=== PATIENT | female | born 1970 | race Caucasian/White ===

== ENCOUNTER → 2016-06-26 | Outpatient (REF) | payer OTHER | LOC: M SFHCCAPE 11:37 | PROVIDERS: ATTEND Physician Assistant | DX: D50.9 Iron deficiency anemia, unspecified (principal) ==

== ENCOUNTER → 2016-07-03 | Outpatient (REF) | payer OTHER ==
[2016-07-03 16:49] LABS: BASO # 0.1 K/mm3 (0.0-0.2); EOS # 0.1 K/mm3 (0.0-0.50); EOS % 1.1 % (0.0-3.0); LARGE UNSTAINED CELL # 0.2 K/mm3 (0.0-0.4); LARGE UNSTAINED CELL % 3.4 % (0.0-4.0); LYMPH # 1.9 K/mm3 (1.5-4.5); LYMPH % 23.7 % (24.0-44.0); MEAN CORPUSCULAR HEMOGLOBIN 22.8 pg (27.0-33.0); MEAN CORPUSCULAR HGB CONC 31.2 g/dl (32.0-36.5); MEAN CORPUSCULAR VOLUME 72.9 fl (80.0-96.0); MONO # 0.6 K/mm3 (0.0-0.8); MONO % 7.8 % (0.0-5.0); NEUTROPHILS # 4.5 K/mm3 (1.8-7.7); PLATELET COUNT, AUTOMATED 375 k/mm3 (150-450); RED CELL DISTRIBUTION WIDTH 22.1 % (11.5-14.5); WHITE BLOOD COUNT 7.2 K/mm3 (4.0-10.0)
[2016-07-03 16:52] LABS: ADD MORPHOLOGY? YES
[2016-07-03 17:09] LABS: ALBUMIN 3.6 GM/DL (3.2-5.2); ALBUMIN/GLOBULIN RATIO 0.88 (1.00-1.93); ALKALINE PHOSPHATASE 100 U/L (45-117); ALT/SGPT 33 U/L (12-78); ANION GAP 11 MEQ/L (8-16); AST/SGOT 56 U/L (15-37); BILIRUBIN,TOTAL 0.5 MG/DL (0.2-1.0); BLOOD UREA NITROGEN 12 MG/DL (7-18); CALCIUM LEVEL 8.9 MG/DL (8.5-10.1); CARBON DIOXIDE LEVEL 27 MEQ/L (21-32); CHLORIDE LEVEL 102 MEQ/L (98-107); CREATININE FOR GFR 0.73 MG/DL (0.55-1.02); FERRITIN 24 NG/ML (8-252); GLOMERULAR FILTRATION RATE > 60.0 (>58); GLUCOSE, FASTING 86 MG/DL (70-105); PERCENT SATURATION 27.3 % (13.2-37.4); POTASSIUM SERUM 3.2 MEQ/L (3.5-5.1); SODIUM LEVEL 140 MEQ/L (136-145); TOTAL IRON BINDING CAPACITY 403 UG/DL (250-450); TOTAL PROTEIN 7.7 GM/DL (6.4-8.2)
[2016-07-03 21:36] LABS: ANISOCYTOSIS 2+; HYPOCHROMASIA 2+; MICROCYTOSIS 2+
== END ==
LOC: M SFHCCAPE 10:46 → M SFHCCLAY 10:50
PROVIDERS: ATTEND Physician Assistant
DX: N92.1 Excessive and frequent menstruation with irregular cycle (principal); D50.9 Iron deficiency anemia, unspecified

== ENCOUNTER → 2016-07-14 | Outpatient (REF) | payer OTHER ==
[2016-07-14 17:26] LABS: ALBUMIN 3.4 GM/DL (3.2-5.2); ALBUMIN/GLOBULIN RATIO 0.81 (1.00-1.93); ALKALINE PHOSPHATASE 86 U/L (45-117); ALT/SGPT 51 U/L (12-78); ANION GAP 10 MEQ/L (8-16); AST/SGOT 37 U/L (15-37); BILIRUBIN,TOTAL 0.4 MG/DL (0.2-1.0); BLOOD UREA NITROGEN 12 MG/DL (7-18); CALCIUM LEVEL 8.9 MG/DL (8.5-10.1); CARBON DIOXIDE LEVEL 26 MEQ/L (21-32); CHLORIDE LEVEL 102 MEQ/L (98-107); CREATININE FOR GFR 0.71 MG/DL (0.55-1.02); GLOMERULAR FILTRATION RATE > 60.0 (>58); GLUCOSE, FASTING 98 MG/DL (70-105); POTASSIUM SERUM 3.2 MEQ/L (3.5-5.1); SODIUM LEVEL 138 MEQ/L (136-145); TOTAL PROTEIN 7.6 GM/DL (6.4-8.2)
[2016-07-14 18:37] LABS: MEAN CORPUSCULAR HGB CONC 30.2 g/dl (32.0-36.5); MEAN CORPUSCULAR VOLUME 76.1 fl (80.0-96.0); PLATELET COUNT, AUTOMATED 382 k/mm3 (150-450); RED CELL DISTRIBUTION WIDTH 21.2 % (11.5-14.5); WHITE BLOOD COUNT 7.5 K/mm3 (4.0-10.0)
[2016-07-14 21:10] LABS: EOSINOPHILS 5 % (0-5)
[2016-07-14 21:14] LABS: ANISOCYTOSIS 3+; MICROCYTOSIS 1+
[2016-07-14 21:15] LABS: GIANT PLATELETS 1+; HYPOCHROMASIA 1+; TOXIC VACUOLATION 1+
== END ==
LOC: M LAB REF 16:41
PROVIDERS: ATTEND Physician Assistant
DX: E87.6 Hypokalemia (principal)

== ENCOUNTER → 2016-08-15 | Outpatient (REF) | payer OTHER ==
[~2016-08-15] MED LIST: COLA100C PO; CYCL1TAB PO; FERR325T PO; FLUO20CA8 PO; HYDR25TAB PO; IRON65TA PO; K-TA1TAB PO; LEVO88TA3 PO; LOSA25TA8 PO; NECO1TAB9 PO; OMEP40CA2 PO; ONDA1TAB16 PO; SUCR1SUS PO; VITA-130 PO; VITA50003 PO; VITMTA PO
[2016-08-15 17:55] LABS: MEAN CORPUSCULAR HEMOGLOBIN 25.4 pg (27.0-33.0); MEAN CORPUSCULAR HGB CONC 31.9 g/dl (32.0-36.5); MEAN CORPUSCULAR VOLUME 79.7 fl (80.0-96.0); PLATELET COUNT, AUTOMATED 446 k/mm3 (150-450); RED CELL DISTRIBUTION WIDTH 22.5 % (11.5-14.5); WHITE BLOOD COUNT 16.5 K/mm3 (4.0-10.0)
[2016-08-15 18:17] LABS: ALBUMIN 3.5 GM/DL (3.2-5.2); ALBUMIN/GLOBULIN RATIO 0.78 (1.00-1.93); ALKALINE PHOSPHATASE 82 U/L (45-117); ALT/SGPT 17 U/L (12-78); ANION GAP 11 MEQ/L (8-16); AST/SGOT 11 U/L (15-37); BILIRUBIN,TOTAL 0.4 MG/DL (0.2-1.0); BLOOD UREA NITROGEN 15 MG/DL (7-18); CALCIUM LEVEL 9.5 MG/DL (8.5-10.1); CARBON DIOXIDE LEVEL 23 MEQ/L (21-32); CHLORIDE LEVEL 104 MEQ/L (98-107); CREATININE FOR GFR 0.77 MG/DL (0.55-1.02); FERRITIN 5 NG/ML (8-252); GLOMERULAR FILTRATION RATE > 60.0 (>58); GLUCOSE, FASTING 125 MG/DL (70-105); PERCENT SATURATION 22.3 % (13.2-37.4); POTASSIUM SERUM 3.5 MEQ/L (3.5-5.1); SODIUM LEVEL 138 MEQ/L (136-145); TOTAL IRON BINDING CAPACITY 520 UG/DL (250-450)
[2016-08-15 19:35] LABS: FOLATE 9.5 NG/ML (>5.4)
[2016-08-15 20:11] LABS: MICROCYTOSIS 2+
[2016-08-15 20:12] LABS: ANISOCYTOSIS 3+; TOXIC VACUOLATION 1+
== END ==
LOC: M SFHCCLAY 09:30
PROVIDERS: ATTEND Family Medicine
DX: D50.9 Iron deficiency anemia, unspecified (principal); I10 Essential (primary) hypertension

== ENCOUNTER 2016-08-17 14:52 | Inpatient (IN) | payer OTHER ==
[~2016-08-17] VITALS: Ht 154.9 cm; Wt 77.1 kg
[2016-08-17] MEDS ORDERED: NECO1TAB9 PO (16:22)
[2016-08-17] MEDS ORDERED: IRON65TA PO (16:22)
[2016-08-17] MEDS ORDERED: FLUO20CA8 PO (16:22)
[2016-08-17] MEDS ORDERED: OMEP40CA2 PO (16:22)
[2016-08-17] MEDS ORDERED: HYDR25TAB PO (16:22)
[2016-08-17] MEDS ORDERED: LEVO88TA3 PO (16:22)
[2016-08-17] MEDS ORDERED: LOSA25TA8 PO (16:22)
[2016-08-17] MEDS ORDERED: COLA100C PO (16:22)
[2016-08-17] MEDS ORDERED: VITA50003 PO (16:22)
[2016-08-17] MEDS ORDERED: NS 1,000 ML IV ONE (17:15)
[2016-08-17 18:12] LABS: CONTROL LINE HCG INT CTR LINE PRESENT
[2016-08-17 18:22] LABS: ALBUMIN 3.1 GM/DL (3.2-5.2); ALBUMIN/GLOBULIN RATIO 0.66 (1.00-1.93); ALKALINE PHOSPHATASE 75 U/L (45-117); ALT/SGPT 28 U/L (12-78); AST/SGOT 24 U/L (15-37); BILIRUBIN,DIRECT < 0.1 MG/DL (0.0-0.2); BLOOD UREA NITROGEN 8 MG/DL (7-18); CALCIUM LEVEL 8.4 MG/DL (8.5-10.1); CARBON DIOXIDE LEVEL 23 MEQ/L (21-32); CHLORIDE LEVEL 104 MEQ/L (98-107); GLUCOSE, FASTING 75 MG/DL (70-105); POTASSIUM SERUM 2.5 MEQ/L (3.5-5.1); THYROXINE (T4) 20.6 UG/DL (4.5-12.0); TOTAL PROTEIN 7.8 GM/DL (6.4-8.2)
[2016-08-17 18:32] LABS: BASO % 0.6 % (0.0-1.0); EOS % 0.7 % (0.0-3.0); LARGE UNSTAINED CELL # 0.3 K/mm3 (0.0-0.4); LARGE UNSTAINED CELL % 4.2 % (0.0-4.0); LYMPH # 1.6 K/mm3 (1.5-4.5); LYMPH % 24.8 % (24.0-44.0); MEAN CORPUSCULAR HGB CONC 32.6 g/dl (32.0-36.5); MEAN CORPUSCULAR VOLUME 76.7 fl (80.0-96.0); MONO # 0.6 K/mm3 (0.0-0.8); MONO % 9.7 % (0.0-5.0); NEUTROPHILS # 3.9 K/mm3 (1.8-7.7); PLATELET COUNT, AUTOMATED 412 k/mm3 (150-450); RED CELL DISTRIBUTION WIDTH 21.5 % (11.5-14.5); WHITE BLOOD COUNT 6.6 K/mm3 (4.0-10.0)
[2016-08-17 18:35] LABS: BILIRUBIN,TOTAL 0.4 MG/DL (0.2-1.0); CREATININE FOR GFR 0.66 MG/DL (0.55-1.02); GLOMERULAR FILTRATION RATE > 60.0 (>58)
[2016-08-17 18:42] LABS: ANION GAP 13 MEQ/L (8-16); SODIUM LEVEL 140 MEQ/L (136-145)
[2016-08-17] MEDS ORDERED: POTASSIUM CHLORIDE 10 MEQ SR TABLET PO ONE ×2 (19:00→20:30)
[2016-08-17] MEDS ORDERED: KCL 10MEQ IN 100ML SWI (KRUN) 10 MEQ in APPROPRIATE DILUENT 1 EA IV ONE ×4 (19:15→20:30)
[2016-08-17] MEDS ORDERED: POTASSIUM CHLORIDE INJ 10 MEQ in D5W/0.2% SODIUM CHLORIDE 1,000 ML IV SCH (19:15)
[2016-08-17] MEDS ORDERED: ISOVUE-370 76% 100ML VIAL (Q9967) As Ordered ONE (19:17)
--- NOTE | 2016-08-17 19:20 | REPUSA ---
CLINICAL HISTORY: Dizziness. TECHNIQUE: Multiple axial CT images were obtained through brain without IV contrast material. COMMENTS: The study shows normal configuration of sella turcica. There are no intra or extra-axial collections. There is no mass effect or midline shift. There is no evidence of hematoma formation. No hydrocephalus is present. The ventricles are symmetrical. No abnormal calcifications are present. No significant focal abnormalities are seen either in the posterior fossa or supratentorial compartme nt. IMPRESSION: No acute intracranial pathology. Thank you for your kind referral of this patient.
--- NOTE | 2016-08-17 19:38 | REP ---
AP PORTABLE CHEST: 08/17/2016. Comparison: 01/14/2010. Clinical history: Dyspnea, cough. Findings: The lungs are well inflated. CP angles are sharply defined. There is no effusion, infiltrate, atelectasis or mass. The heart, mediastinal and hilar contours, aorta and airway were intact. Bones without acute finding. Impression:1. No acute cardiopulmonary disease. Signed by Chris Valencia MD 08/17/2016 07:54 P
--- NOTE | 2016-08-17 20:50 | REPUSA ---
History: shortness of breath Comparison: No prior CTA of the chest available Technique: A CT-pulmonary angiogram was performed. A dose of intravenous contrast was administered. A xial images were displayed, as were sagittal and coronal reconstructions. A 3-D model was also render ed. Exam DLP: Findings: No CT evidence of pulmonary embolism is identified. There is no evidence of thoracic aortic aneurysm or dissection. No air space consolidation is identified in the lungs. There is no evidence of pulmonary edema. No pa thologically enlarged hilar or mediastinal lymph nodes are identified. No significant pleural or genesis cardial fluid collection is seen. There is no evidence of pneumothorax. Large hiatal hernia is noted. The included portion of the upper abdomen does not show significant abnormality. Impression: No evidence of pulmonary embolism is identified. Large hiatal hernia.
[2016-08-17 20:52] LABS: MAGNESIUM LEVEL 1.8 MG/DL (1.8-2.4)
--- NOTE | 2016-08-17 21:10 | REPUSA ---
CLINICAL HISTORY: Shortness of breath. TECHNIQUE: Multiple axial CT images were obtained through the abdomen and pelvis after administratio n of intravenous contrast material. Oral contrast material was not administered. COMMENTS: There are several small hepatic cysts noted measuring up to 10 mm. There is no intra or extrahepatic biliary ductal dilatation. The spleen is normal. Status post cholecystectomy. The pancreas is of normal contour and attenuation characteristics. There is no evidence of adrenal mass. Both kidneys demonstrate prompt and equal nephrograms. The kidneys are normal in size, shape and con figuration. There is no evidence of renal or ureteral mass. No renal or ureteral calculi are identi fied. There is no hydroureter or hydronephrosis. No evidence for appendicitis. There are fluid filled thick wall loops of small bowel noted compatibl e with panenteritis. Infectious and inflammatory etiology is considered. No evidence for small or l arge bowel obstruction. There is no evidence of abdominal ascites or lymphadenopathy. Scattered sig moid diverticula seen. No evidence of diverticulitis. Uterus is somewhat bulky and enlarged. Ovaries are grossly unremarkable. There are surgical clips n oted in the left adnexa. There is no evidence of intrinsic or extrinsic bladder mass. There is no pelvic ascites or lymphaden opathy. Images of the lung bases show no evidence of pleural or parenchymal mass. There are no pleural effus ions. The bony structures are free of lytic or blastic lesions. Large hiatal hernia is seen. Small fat containing umbilical hernia is seen. IMPRESSION: 1. There are several small hepatic cysts noted measuring up to 10 mm. 2. There are fluid filled thick wall loops of small bowel noted compatible with panenteritis. 3. Uterus is somewhat bulky and enlarged. 4. Large hiatal hernia is seen. 5. Small fat containing umbilical hernia is seen. Thank you for your kind referral of this patient. We appreciate the opportunity to participate in thi s patient's care.
[2016-08-17] MEDS ORDERED: FERR325T PO (22:53)
[2016-08-17] MEDS ORDERED: CYCL1TAB PO (22:56)
[2016-08-17] MEDS ORDERED: ONDA1TAB16 PO (22:56)
[2016-08-17] MEDS ORDERED: VITA-130 PO (22:56)
[2016-08-17] MEDS ORDERED: VITMTA PO (22:56)
[2016-08-17] MEDS ORDERED: ONDANSETRON 4 MG TAB (S0181) PO PRN (23:45)
[2016-08-17] MEDS ORDERED: ONDANSETRON 4MG/2ML VIAL (J2405) IV PRN (23:45)
[2016-08-17] MEDS ORDERED: PERCOCET 5MG/325MG TAB PO PRN (23:45)
[2016-08-17] MEDS ORDERED: ACETAMINOPHEN TAB 650MG DOSE (2X325MG) PO PRN (23:45)
[2016-08-18] VITALS (7 sets, daily range): BP systolic 112–139; BP diastolic 60–78
[2016-08-18] MEDS ORDERED: GI COCKTAIL 50ML BTL(HYOSCYAMINE/MAALOX/LIDOCAINE VISCOUS)(1:3:1) PO PRN (00:45)
--- NOTE | 2016-08-18 00:59 | HPEPDOC ---
Medical History and Physical Date of Admission Aug 17, 2016 at 23:03 History and Physical HISTORY AND PHYSICAL Date of admission: 08/18/2016 PCP: Alma Mosquera 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 She states that this started in May, but has gotten much worse in the last week. She states that any activity at all makes her extremely short of breath, as does lying flat. She states that she initially thought that she was anemic again, as she has required blood transfusions in the past for her anemia from dysfunctional uterine bleeding. However, she said that her PCP told her that her hemoglobin was fine. She reports that in addition to the shortness of breath , she has had episodes where she feels like food gets stuck going down. She had one of these episodes on Sunday night, and noticed that after that, it seemed to set off a lot of diarrhea and vomiting. There is no blood in her diarrhea. She states that she has an appointment with a rate clerk next week, but she is not sure that she can make it next week. Past medical history: Hypertension, hypothyroidism, anemia secondary to dysfunctional uterine bleeding, IBS Past surgical history: BTL, cholecystectomy Family history: CHF, hypertension Social history: Patient denies tobacco or alcohol use Allergies: No known drug allergies Review of systems: General: Positive for chills. Negative for fever Eyes: Negative for vision changes and ocular discharge ENT: Negative For sore throat and nose bleed Cardiovascular: Negative for chest pain and palpitations Respiratory: Negative for cough. Positive shortness of breath. GI: Positive for nausea, vomiting, diarrhea Musculoskeletal: Positive for neck pain. Negative for back pain Skin: Negative for rash Neuro: Positive for headache, dizziness, numbness and tingling of the bilateral hands and face Psych: Negative for depression and suicidal ideation Endocrine:. Negative for Polyuria : Negative for dysuria Heme: Negative for bruising and bleeding Home meds: See below Physical exam: Vital signs: Vital Sign - Last 24 Hours 08/17/16 08/17/16 08/17/16 08/17/16 15:14 15:23 15:31 15:54 Temp 98.4 Pulse 77 Resp 24 B/P 157/70 139/65 Pulse Ox 100 O2 Delivery Room Air Room Air Room Air 08/17/16 08/17/16 08/17/16 08/17/16 16:09 16:24 16:39 16:52 Pulse 74 B/P 148/72 149/78 158/78 Pulse Ox 98 08/17/16 08/17/16 08/17/16 08/17/16 16:54 17:09 17:24 17:39 B/P 150/76 157/89 154/85 141/72 08/17/16 08/17/16 08/17/16 08/17/16 18:06 18:09 18:24 18:25 Pulse 74 B/P 122/57 143/76 145/79 Pulse Ox 99 08/17/16 08/17/16 08/17/16 08/17/16 18:39 18:42 18:54 18:55 Pulse 80 B/P 139/72 144/70 135/63 Pulse Ox 100 08/17/16 08/17/16 08/17/16 08/17/16 19:09 19:25 19:26 19:30 Pulse 80 84 B/P 149/66 128/61 Pulse Ox 100 100 08/17/16 08/17/16 08/17/16 08/17/16 19:39 19:54 20:00 20:09 Pulse 82 B/P 124/70 140/73 140/65 Pulse Ox 100 08/17/16 08/17/16 08/17/16 08/17/16 20:24 20:30 20:43 20:54 Pulse 80 B/P 127/67 155/69 151/72 Pulse Ox 100 08/17/16 08/17/16 08/17/16 08/17/16 21:00 21:09 21:24 21:26 Pulse 82 82 B/P 139/65 145/65 Pulse Ox 99 97 08/17/16 08/17/16 08/17/16 08/17/16 21:30 21:35 21:39 21:54 Pulse 86 82 B/P 144/56 145/67 Pulse Ox 98 98 08/17/16 08/17/16 08/17/16 08/17/16 22:05 22:09 22:24 22:35 Pulse 84 84 B/P 135/55 118/73 Pulse Ox 97 98 08/17/16 08/17/16 08/17/16 08/17/16 22:39 22:54 23:05 23:09 Pulse 86 B/P 127/77 125/73 122/69 Pulse Ox 98 08/17/16 08/17/16 08/17/16 08/17/16 23:24 23:35 23:39 23:54 Pulse 92 B/P 116/58 121/63 132/63 Pulse Ox 99 Gen.: awake, alert, no acute distress Eyes: Extraocular movements intact, normal sclera ENT: Moist mucous membranes Cardiovascular: RRR, no murmurs rubs or gallops Lungs: clear to auscultation bilaterally, no rales, rhonchi, or wheeze Abdomen: Soft, NT/ND, normal BS Musculoskeletal: normal range of motion Extremities: No peripheral edema Neuro: alert and oriented 3, normal speech, no focal deficits Psych: Normal mood with congruent affect Labs and radiology: See below CBC is unremarkable BMP is significant for potassium of 2.5 D dimer greater than 900 CTA of the chest does not show any PE or other respiratory pathology but does note a significant hiatal hernia TSH within normal limits, free T4 greater than 20 BMP within normal limits CT of the abdomen and pelvis shows pancolitis Trops negative 2 Assessment and plan: 45-year-old female with hypertension, hypothyroidism, anemia secondary to dysfunctional uterine bleeding, IBS who presented with shortness of breath. She was admitted with gonsales enteritis, hypokalemia, and symptomatic hiatal hernia. 1. Gonsales enteritis: Demonstrated on CT of the abdomen and pelvis. Start with clear liquid diet as well as IV fluids, and supportive therapy. Patient is afebrile. We will check a GI panel. 2. Hypokalemia: Likely secondary to GI losses. The patient has already received 50 mEq of potassium. We will also supplement her magnesium. We will start her on fluids with potassium and recheck it with a.m. labs and a couple hours. Monitor on telemetry. 3. Shortness of breath, symptomatic hiatal hernia: The patient reports significant shortness of breath, and although she is satting well on room air, clinically she does appear short of breath. Imaging of her chest is unremarkable for any pulmonary pathology. Her lungs are clear on exam. Although her d-dimer was elevated, a CTA is negative for PE, and she does not appear to have any infectious process. She has no history of smoking, and her lungs do not sound as if she has any sort of COPD. A BNP is normal, however the patient does report worsening of her symptoms when she is active or laying flat. For this reason, we will check an echo. However, if an echo is unremarkable, I suspect that most of the symptoms are secondary to the large hiatal hernia. We will continue her home PPI, as well as initiate Carafate and a GI cocktail. I suspect, that the patient may eventually end up needing to consider operative repair of her hiatal hernia given her significant symptoms. 4. Hypertension: Continue home hydrochlorothiazide and ARB. 5. Hypothyroidism: Free T4 is significantly elevated. We will decrease her dose of Synthroid. She will need her thyroid function tests rechecked in 6 weeks. 6. Anemia secondary to dysfunctional uterine bleeding: Hemoglobin is currently around 12. We will continue her home iron. She also will be allowed to take her home supply of oral contraceptive pills. DVT prophylaxis: SCDs Dispo: admit as an inpatient to the service of Dr. Fisher CODE STATUS: Full code Vital Signs see above Laboratory Data Labs 24H Laboratory Tests 2 08/17/16 17:41: Aspartate Amino Transf (AST/SGOT) 24, Alanine Aminotransferase (ALT/SGPT) 28, Alkaline Phosphatase 75, Total Bilirubin 0.4, Direct Bilirubin < 0.1, Albumin 3.1L, Albumin/Globulin Ratio 0.66L, Anion Gap 13, B-Type Natriuretic Peptide 5.1 , White Blood Count 6.6, Red Blood Count 4.76, Hemoglobin 11.9L, Hematocrit 36.5 , Mean Corpuscular Volume 76.7L, Mean Corpuscular Hemoglobin 25.0L, Mean Corpuscular Hemoglobin Concent 32.6, Red Cell Distribution Width 21.5H, Platelet Count 412, Neutrophils (%) (Auto) 60.0, Lymphocytes (%) (Auto) 24.8, Monocytes (%) (Auto) 9.7H, Eosinophils (%) (Auto) 0.7, Basophils (%) (Auto) 0.6 , Neutrophils # (Auto) 3.9, Lymphocytes # (Auto) 1.6, Monocytes # (Auto) 0.6, Eosinophils # (Auto) 0.0, Basophils # (Auto) 0.0, Calcium Level 8.4L, Creatine Kinase MB 1.0, Creatine Kinase MB Relative Index 2.12, D-Dimer, Quantitative 940.8H, Glomerular Filtration Rate > 60.0, Human Chorionic Gonadotropin, Qual NEGATIVE, Lactic Acid (Sepsis) 1.5, Large Unclassified Cells # 0.3, Large Unclassified Cells % 4.2H, Magnesium Level 1.8, Thyroid Stimulating Hormone (TSH ) 0.531, Thyroxine (T4) 20.6H, Total Creatine Kinase 47, Total Protein 7.8, Troponin I < 0.02 08/17/16 21:11: Creatine Kinase MB 1.0, Creatine Kinase MB Relative Index 2.22, Total Creatine Kinase 45, Troponin I < 0.02 CBC/BMP Laboratory Tests 08/17/16 17:41 Red Blood Count 4.76, Mean Corpuscular Volume 76.7 L, Mean Corpuscular Hemoglobin 25.0 L, Mean Corpuscular Hemoglobin Concent 32.6, Red Cell Distribution Width 21.5 H, Neutrophils (%) (Auto) 60.0, Lymphocytes (%) (Auto) 24.8, Monocytes (%) (Auto) 9.7 H, Eosinophils (%) (Auto) 0.7, Basophils (%) ( Auto) 0.6, Neutrophils # (Auto) 3.9, Lymphocytes # (Auto) 1.6, Monocytes # (Auto ) 0.6, Eosinophils # (Auto) 0.0, Basophils # (Auto) 0.0 Microbiology Microbiology 08/17/16 Blood Culture, Received Pending 08/17/16 Blood Culture, Received Pending 08/17/16 Influenza Virus Type A Antigen - Final, Complete 08/17/16 Influenza Virus Type B Antigen - Final, Complete Home Medications Scheduled (Cyclafem 1-35 mg-Mcg) 1 Tab Tab 1 TAB PO DAILY Ascorbic Acid (Vitamin C) 500 Mg Tab 500 MG PO DAILY Ergocalciferol (Vitamin D) 50,000 Unit Cap 50,000 UNIT PO DAILY Ferrous Sulfate (Ferrous Sulfate) 325 Mg Tab 325 MG PO TID PATIENT HAS TROUBLE KEEPING TABLET DOWN Fluoxetine Hcl (Fluoxetine) 20 Mg Cap 20 MG PO DAILY Hydrochlorothiazide (Hydrochlorothiazide) 25 Mg Tab 25 MG PO DAILY Levothyroxine Sodium (Synthroid) 88 Mcg Tab 88 MCG PO QAM Losartan Potassium (Losartan Potassium) 25 Mg Tab 25 MG PO DAILY Multivitamins *[facility] STOCKED* (Thera M Plus *[facility] STOCKED*) 1 Tab Tab 1 TAB PO DAILY Omeprazole (Omeprazole) 40 Mg Cap 40 MG PO DAILY Scheduled PRN Docusate Sodium (Colace) 100 Mg Cap 100 MG PO DAILY PRN PRN CONSTIPATION Ondansetron HCl (Ondansetron HCl) 8 Mg Tab 8 MG PO TID PRN PRN NAUSEA Allergies Coded Allergies: No Known Allergies (Verified , 12/15/02) ALURO BRUCE Aug 18, 2016 00:59
[2016-08-18] MEDS: KCL 40MEQ in NS 1000ML 1,000 ML IV SCH ×3 (03:09→15:43)
[2016-08-18] MEDS: MAG SULF 1GM/100ML (MAG RUN) 1 GM in APPROPRIATE DILUENT 1 EA IV SCH ×2 (03:09→04:14)
[2016-08-18 05:01] LABS: BASO % 0.5 % (0.0-1.0); EOS # 0.1 K/mm3 (0.0-0.50); EOS % 1.1 % (0.0-3.0); LARGE UNSTAINED CELL # 0.3 K/mm3 (0.0-0.4); LARGE UNSTAINED CELL % 5.6 % (0.0-4.0); LYMPH # 1.8 K/mm3 (1.5-4.5); LYMPH % 30.2 % (24.0-44.0); MEAN CORPUSCULAR HEMOGLOBIN 25.4 pg (27.0-33.0); MEAN CORPUSCULAR VOLUME 76.9 fl (80.0-96.0); MONO # 0.5 K/mm3 (0.0-0.8); MONO % 8.9 % (0.0-5.0); NEUTROPHILS # 3.2 K/mm3 (1.8-7.7); NEUTROPHILS % 53.7 % (36.0-66.0); PLATELET COUNT, AUTOMATED 390 k/mm3 (150-450); RED CELL DISTRIBUTION WIDTH 21.9 % (11.5-14.5)
[2016-08-18 05:27] LABS: ANION GAP 12 MEQ/L (8-16); BLOOD UREA NITROGEN 6 MG/DL (7-18); CALCIUM LEVEL 7.4 MG/DL (8.5-10.1); CARBON DIOXIDE LEVEL 22 MEQ/L (21-32); CHLORIDE LEVEL 106 MEQ/L (98-107); CREATININE FOR GFR 0.59 MG/DL (0.55-1.02); GLOMERULAR FILTRATION RATE > 60.0 (>58); GLUCOSE, FASTING 101 MG/DL (70-105); MAGNESIUM LEVEL 2.4 MG/DL (1.8-2.4); POTASSIUM SERUM 2.7 MEQ/L (3.5-5.1); SODIUM LEVEL 140 MEQ/L (136-145)
[2016-08-18] MEDS ORDERED: INFLUENZA QUADRIVALENT PF VACCINE 0.5ML SYRINGE/VIAL (90686) IM SCH (05:30)
[2016-08-18] MEDS: LEVOTHYROXINE SODIUM 0.0625 MG 1/2 TAB (62.5MCG) PO SCH (06:21)
[2016-08-18] MEDS: SUCRALFATE SUSP 1GM/10ML UD PO SCH ×4 (07:29→20:29)
[2016-08-18] MEDS: POTASSIUM CHLORIDE 10 MEQ SR TABLET PO SCH ×2 (07:30→08:17)
[2016-08-18] MEDS: CIPROFLOXACIN 400 MG in APPROPRIATE DILUENT 1 EA IV SCH ×2 (07:30→20:29)
[2016-08-18] MEDS: OMEPRAZOLE 20 MG CAP PO SCH (08:17)
[2016-08-18] MEDS: FERROUS SULFATE 325MG TAB PO SCH ×3 (08:18→20:29)
[2016-08-18] MEDS: metroNIDAZOLE 500 MG in APPROPRIATE DILUENT 1 EA IV SCH ×2 (08:18→17:11)
[2016-08-18] MEDS: FLUoxetine 20 MG CAP PO SCH (08:18)
[2016-08-18] MEDS ORDERED: hydroCHLOROthiazide 25 MG TAB PO SCH (09:00)
[2016-08-18] MEDS ORDERED: LOSARTAN 25 MG TAB PO SCH (09:00)
[2016-08-18] MEDS ORDERED: CYCLAFEM PO SCH (09:00)
[2016-08-18] MEDS ORDERED: LOSARTAN 50 MG TAB PO SCH (09:28)
[2016-08-18 12:39] LABS: MAGNESIUM LEVEL 2.6 MG/DL (1.8-2.4)
--- NOTE | 2016-08-18 16:36 | IPN ---
DATE: 08/18/2016 Patient seen and examined at the bed side. The chart has been reviewed. This morning states that she is having epigastric discomfort, radiating up towards the neck, worse when she eats and some shortness of breath accompanying this. She has had no bowel movements yet and no vomiting during this admission. Potassium remains low at 2.7. No electrocardiogram changes found on telemetry. She otherwise denies any palpitations, lightheadedness, dizziness. VITAL SIGNS: Temperature 96.9, pulse 86, respiratory 20, blood pressure 112/62, 98% on room air. GENERAL: Awake, alert, and oriented times three. No respiratory distress. No use of respiratory accessory muscles. HEENT: Pupils equal, round, reactive to light and accommodation. Extraocular muscles are intact. Normocephalic. Atraumatic. No jugular venous distention, thyromegaly or cervical lymphadenopathy. LUNGS: Are clear to auscultation. No wheezing, rales or rhonchi. HEART: S1, S2, sinus rhythm. ABDOMEN: Soft, non-tender, non-distended. Positive bowel sounds. EXTREMITIES: No cyanosis, clubbing or pitting edema. NEUROLOGIC: Awake, alert, oriented times three. Speech is full and no respiratory distress. LABORATORY DATA: White count 6, hemoglobin 10, hematocrit 32, platelet 390. Sodium 140, potassium 2.7, chloride 106, bicarbonate 22, BUN 12, creatinine 0.59, glucose of 101, calcium of 7.4, magnesium 2.4, troponin less than 0.02. MICROBIOLOGY: Influenza A and B are negative. Two sets of blood cultures are pending. CT chest no pulmonary embolism. Large hiatal hernia. No airspace consolidation in the lungs. No evidence of pulmonary embolism. CT abdomen and pelvis shows several small hepatic cysts measuring up to 10 mm. Goff enteritis. Uterus is bulky and enlarged. Large hiatal hernia is seen. Small fat containing umbilical hernia is seen. ASSESSMENT AND PLAN: This is a 45-year-old female with nausea, vomiting and diarrhea. Large hiatal hernia presents with severe hypokalemia, shortness of breath. CT chest showed no pulmonary embolism or acute infiltrate or effusion. CURRENT ISSUES: 1. Goff enteritis demonstrated on a CT of the abdomen non-distended pelvis. Nausea, vomiting and diarrhea as outpatient. Check GI panel. Start on Cipro and Flagyl. Check ROBBIN, p-ANCA, sed rate and CRP to rule out inflammatory bowel disease. Patient has had no prior episode in the past which makes inflammatory bowel disease unlikely. This is most likely an acute infectious process. Await GI panel results prior to discontinuation of antibiotics. Supportive care with intravenous fluids and clear liquid diet. Advance as tolerated to full liquids and soft mechanical. 2. Low potassium secondary to GI losses. Patient has received multiple potassium tablets and IV line is currently D5 half normal with potassium supplement. Recheck potassium and magnesium every 6 hours at noon and midnight in order to supplement. 3. Symptomatic hiatal hernia with shortness of breath. Patient has no CT evidence of primary lung disease. She has no lung consolidation, effusion or edema. Negative for pulmonary embolism, therefore most likely has symptomatic hiatal hernia causing shortness of breath at this time. We will also check an echocardiogram. Supportive cure with PPI, Carafate, GI cocktail for now. Patient will need an EGD as outpatient for biopsy. Rule out peptic ulcer disease due to complaints of epigastric discomfort as well and with a history of recent diarrhea may need a colonoscopy if it is not an infectious process, and abnormal antibodies are found on routine testing. 4. Hypertension. We will discontinue hydrochlorothiazide due to decreased oral intake and diarrhea. Monitor ajjlvonddyn-syjmxrkv-tsmqkvo (ARB) for now. If patient's creatinine increases or worsening azotemia occurs we will discontinue acqersaeggb-flxfxolc-lpfmcis (ARB) as this can worsen renal failure. We will try to avoid nephrotoxins and renally dose medications once creatinine because abnormal. 5. Hypothyroidism. Her Synthroid has been decreased due to slightly elevated Free T4. We will recheck thyroid function tests in 6 weeks time. Anemia with history of dysfunctional uterine bleeding. Currently hemoglobin is stable at 12. Continue on home iron. Patient was due to obtain, EGD possible colonoscopy with Dr. Kerr as outpatient. 6. Large hiatal hernia. Outpatient follow up. Patient will most likely need fundoplication as outpatient.
[2016-08-18 18:29] LABS: MAGNESIUM LEVEL 2.2 MG/DL (1.8-2.4); POTASSIUM SERUM 4.1 MEQ/L (3.5-5.1)
[2016-08-19 01:05] LABS: MAGNESIUM LEVEL 2.1 MG/DL (1.8-2.4); POTASSIUM SERUM 3.8 MEQ/L (3.5-5.1)
[2016-08-19] MEDS: metroNIDAZOLE 500 MG in APPROPRIATE DILUENT 1 EA IV SCH (01:15)
[2016-08-19 06:00] VITALS: BP 120/74
[2016-08-19] MEDS: LEVOTHYROXINE SODIUM 0.0625 MG 1/2 TAB (62.5MCG) PO SCH (06:31)
[2016-08-19 06:45] LABS: BASO % 0.6 % (0.0-1.0); EOS # 0.2 K/mm3 (0.0-0.50); EOS % 4.2 % (0.0-3.0); LARGE UNSTAINED CELL # 0.2 K/mm3 (0.0-0.4); LARGE UNSTAINED CELL % 3.4 % (0.0-4.0); LYMPH # 1.9 K/mm3 (1.5-4.5); LYMPH % 34.9 % (24.0-44.0); MEAN CORPUSCULAR HEMOGLOBIN 25.7 pg (27.0-33.0); MEAN CORPUSCULAR HGB CONC 32.8 g/dl (32.0-36.5); MEAN CORPUSCULAR VOLUME 78.3 fl (80.0-96.0); MONO # 0.4 K/mm3 (0.0-0.8); MONO % 7.8 % (0.0-5.0); NEUTROPHILS # 2.4 K/mm3 (1.8-7.7); PLATELET COUNT, AUTOMATED 381 k/mm3 (150-450); RED CELL DISTRIBUTION WIDTH 22.8 % (11.5-14.5); WHITE BLOOD COUNT 4.9 K/mm3 (4.0-10.0)
[2016-08-19] MEDS ORDERED: POTASSIUM CHLORIDE 10 MEQ SR TABLET PO ONE (06:45)
[2016-08-19] MEDS ORDERED: SUCR1SUS PO (06:52)
[2016-08-19] MEDS ORDERED: K-TA1TAB PO (06:53)
[2016-08-19 06:57] LABS: ANION GAP 10 MEQ/L (8-16); BLOOD UREA NITROGEN 6 MG/DL (7-18); CALCIUM LEVEL 7.9 MG/DL (8.5-10.1); CARBON DIOXIDE LEVEL 22 MEQ/L (21-32); CHLORIDE LEVEL 111 MEQ/L (98-107); CREATININE FOR GFR 0.55 MG/DL (0.55-1.02); GLOMERULAR FILTRATION RATE > 60.0 (>58); GLUCOSE, FASTING 86 MG/DL (70-105); MAGNESIUM LEVEL 2.1 MG/DL (1.8-2.4); POTASSIUM SERUM 3.4 MEQ/L (3.5-5.1); SODIUM LEVEL 143 MEQ/L (136-145)
[2016-08-19 08:16] VITALS: BP 120/74
[2016-08-19] MEDS: FLUoxetine 20 MG CAP PO SCH (08:16)
[2016-08-19] MEDS: FERROUS SULFATE 325MG TAB PO SCH (08:16)
[2016-08-19] MEDS: SUCRALFATE SUSP 1GM/10ML UD PO SCH (08:16)
[2016-08-19] MEDS: OMEPRAZOLE 20 MG CAP PO SCH (08:16)
--- NOTE | 2016-08-19 08:43 | ECGEPIP ---
Stationary ECG Study [facility] - ED Test Date: 2016-08-17 Pat Name: KAI ANN Department: Room: [place] [address] Gender: F Net C Developer: joel : 1970 Requested By: Joe Hoffman Order Number: [id number] Reading MD: Estela Hardy Measurements Intervals [place] Rate: 74 P: 25 AR: 155 QRS: -15 QRSD: 94 T: -3 QT: 421 QTc: 469 Interpretive Statements SINUS RHYTHM ST DEVIATION AND MODERATE T-WAVE ABNORMALITY, CONSIDER ANTEROLATERAL ISCHEMIA NO PRIOR FOR COMPARISON Electronically Signed On 08-19-2016 8:43:15 EST by Estela Hardy
--- NOTE | 2016-08-19 08:49 | ECGEPIP ---
Stationary ECG Study [facility] - ED Test Date: 2016-08-17 Pat Name: KAI ANN Department: Room: [place] [address] Gender: F Mobile Lounge Driver Or Operator: joel : 1970 Requested By: Joe Hoffman Order Number: [id number] Reading MD: Estela Hardy Measurements Intervals [place] Rate: 74 P: 39 LA: 151 QRS: -14 QRSD: 92 T: -5 QT: 395 QTc: 441 Interpretive Statements SINUS RHYTHM NONSPECIFIC ST & T-WAVE ABNORMALITY SIMILAR 08/17/16 Electronically Signed On 08-19-2016 8:49:33 EST by Estela Hardy
--- NOTE | 2016-08-20 07:29 | ECHO ---
DATE OF PROCEDURE: 08/18/2016 REFERRING PHYSICIAN: Dr. Svitlana Burton INDICATION: Dyspnea. HEIGHT: 125 cm. WEIGHT: 76.7 kg. MEASUREMENTS: Ventricular septum - 1.11 cm Posterior wall - 1.02 cm Left ventricle diastole - 4.5 cm Left atrium - 3.5 cm LVOT - 2.0 cm Aortic root - 3.1 cm Inferior vena cava - 1.2 cm Left atrial volume index - 19.3 m/m2 body surface area. DOPPLER MEASUREMENTS: Aortic valve velocity - 152 cm/s LVOT - 110 cm/s LVOT VTI - 23.8 cm Mild mitral regurgitation. Mitral E velocity - 84.9 cm/s Mitral A velocity - 93.3 cm/s Mitral deceleration time - 194 ms Mild tricuspid regurgitation. Estimated right ventricle systolic pressure 27 mmHg. Estimated right atrial pressure of 5 mmHg. Pulmonary arterial pressure 24 mmHg by pulmonary acceleration time method. MITRAL ANNULAR TISSUE DOPPLER: E - prime septal - 7.4 cm/s E - prime lateral - 7.4 cm/s DESCRIPTION: The rhythm was sinus. Image quality was good. This is a 2D, M-mode, color flow Doppler and pulsed wave Doppler examination including mitral annular tissue Doppler. CONCLUSIONS: 1. Normal left ventricle internal dimensions and wall thickness. Normal LV wall motion and LV systolic function. LVEF 65% by visual estimate. 2. Suggestive of grade 1 LV diastolic dysfunction (impaired relaxation filling pattern). 3. Normal left atrial size and left atrial volume index. 4. Otherwise normal echocardiogram Doppler.
--- NOTE | 2016-08-21 10:29 | DSES ---
DATE OF ADMISSION: 08/17/2016 DATE OF DISCHARGE: 08/19/2016 PRIMARY DISCHARGE DIAGNOSES: 1. Norovirus diarrhea, gastroenteritis. 2. Low potassium secondary to diarrhea. 3. Shortness of breath, pulmonary emboli (PE), pneumonia has been ruled out. 4. Large hiatal hernia. 5. Hypertension. 6. Hypothyroidism. FOLLOWUP ISSUES: Large hiatal hernia. The patient should go for addition surgery for surgical options as the patient is having significant shortness of breath and abdominal pain from reflux. She has been placed on Carafate and proton pump inhibitor (PPI). DISCHARGE MEDICATIONS: - Carafate 1 gram before food, at bedtime (hs) - Prilosec 40 mg daily - vitamin C 500 mg daily - Cyclofem one tab daily - Colace 100 mg as needed daily - vitamin D 57145 units daily - ferrous sulfate 325 mg three times a day - potassium 20 mEq daily for 10 days - fluoxetine 20 mg daily - Synthroid 88 mg daily - losartan 25 mg daily - multivitamins one tablet daily - Prilosec 40 mg daily - Zofran 8 mg three times a day as needed for nausea - The patient's hydrochlorothiazide has been discontinued as she has been experiencing diarrhea. INSTRUCTIONS: To drink at least 3 liters of liquid daily. If fevers, worsening abdominal pain or more than 10 bowel movements occur, call your physician. HOSPITAL COURSE: This is a 45-year-old female, who has nausea, vomiting and diarrhea was found to have large hiatal hernia. CT chest, which showed no pulmonary embolism, acute infiltrate or effusion. She came in with shortness of breath and weakness, was found to have severe hyperkalemia, potassium of 2.5 due to persistent diarrhea. Gastrointestinal (GI) panel showed norovirus. She was given IV supportive therapy with normal saline, potassium supplementation with significant improvement. The patient was continued on her home medications, to rule out acute pathology. CT chest was performed due to complaints of severe shortness of breath. No pulmonary embolism, pneumonia, effusion or edema were noted. She has a large hiatal hernia. CT abdomen and pelvis showed gonsales enteritis secondary to norovirus by pathology and microbiology. The patient had symptomatic improvement with potassium supplementation, tolerated advancement of her diet and was safe for discharge home. Troponins were negative times three sets. LABS ON DISCHARGE: White count 4.9, hemoglobin 10, hematocrit 32, platelet count 381. Sodium 143, potassium 3.4, chloride 111, bicarbonate 22, BUN 6, creatine 0.55, glucose of 86. Microbiology: Stool culture: Norovirus. Two sets of blood cultures read negative. Influenza A and B negative. CT chest: No pulmonary embolism, consolidation, infiltrate, effusion or edema. Large hiatal hernia. CT of abdomen and pelvis shows gonsales enteritis. Uterus is bulky and enlarged. Large hiatal hernia. TIME SPENT ON DISCHARGE: 30 minutes.
[2016-08-23 14:16] LABS: ANTI-SACCHAROMYCES CEREV. IgA 20.3 Units (0.0-24.9); ANTI-SACCHAROMYCES CEREV. IgG <20.0 Units (0.0-24.9)
== END 2016-08-19 11:15 | disposition home or self-care (01) | DRG 249 ==
LOC: M ED 16:06 → M ED INP 23:03 → M ICU 08-18 02:44 → M MSPAV 08-18 16:35
PROVIDERS: ADMIT Internal Medicine; ATTEND General Practice
DX: A08.11 Acute gastroenteropathy due to Norwalk agent (principal); E87.6 Hypokalemia; K44.9 Diaphragmatic hernia without obstruction or gangrene; K21.9 Gastro-esophageal reflux disease without esophagitis; I10 Essential (primary) hypertension; E03.9 Hypothyroidism, unspecified; R06.02 Shortness of breath; K51.00 Ulcerative (chronic) pancolitis without complications; D50.0 Iron deficiency anemia secondary to blood loss (chronic); N93.8 Other specified abnormal uterine and vaginal bleeding; Z79.899 Other long term (current) drug therapy

== ENCOUNTER → 2016-08-29 | Outpatient (CLI) | payer OTHER ==
[~2016-08-29] VITALS: Ht 157.5 cm; Wt 78.5 kg
[~2016-08-29] MED LIST changes: +LIDOCAINE 2% INJ 100 MG/5 ML SYRINGE As Ordered ONE; +NS 1,000 ML IV SCH; +PROPOFOL 500 MG/50 ML VIAL As Ordered ONE; +[UNRECOGNIZED DRUG - CODE] PO
--- NOTE | 2016-08-29 07:47 | ROOR ---
Patient Name: Shyla Oliveros Procedure Date: 08/29/2016 7:32 AM Date of : 1970 Age: 45 Room: [facility] Gender: Female Note Status: Finalized Procedure: Upper GI endoscopy Indications: Iron deficiency anemia, Dysphagia Providers: Waqar Kerr MD Referring MD: 1. No Referring Physician 1. No Referring Physician, Admin. Requesting Provider: Medicines: Monitored Anesthesia Care Complications: No immediate complications. Procedure: Pre-Anesthesia Assessment: - The heart rate, respiratory rate, oxygen saturations, blood pressure, adequacy of pulmonary ventilation, and response to care were monitored throughout the procedure. The Endoscope was introduced through the mouth, and advanced to the second part of duodenum. The upper GI endoscopy was accomplished without difficulty. The patient tolerated the procedure well. Findings: The Z-line was regular and was found 35 cm from the incisors. A medium-sized hiatal hernia was present. No other significant abnormalities were identified in a careful examination of the stomach. The exam of the duodenum was otherwise normal. Impression: - Z-line regular, 35 cm from the incisors. - Medium-sized hiatal hernia. - No specimens collected. - The examination was otherwise normal. Recommendation: - Patient has a contact number available for emergencies. The signs and symptoms of potential delayed complications were discussed with the patient. Return to normal activities tomorrow. Written discharge instructions were provided to the patient. - High fiber diet. - Discharge patient to home. - Continue present medications. - Follow an antireflux regimen. - Return to referring physician. - The findings and recommendations were discussed with the patient's family. Waqar Kerr MD Waqar Kerr MD 08/29/2016 7:47:29 AM This report has been signed electronically. Number of Addenda: 0 Note Initiated On: 08/29/2016 7:32 AM Estimated Blood Loss: Estimated blood loss: none.
--- NOTE | 2016-08-29 08:00 | ROOR ---
Patient Name: Shyla Oliveros Procedure Date: 08/29/2016 7:34 AM Date of : 1970 Age: 45 Room: [facility] Gender: Female Note Status: Finalized Procedure: Colonoscopy to Cecum Indications: Iron deficiency anemia secondary to chronic blood loss Providers: Waqar Kerr MD Referring MD: 1. No Referring Physician 1. No Referring Physician, Admin. Requesting Provider: Medicines: Monitored Anesthesia Care Complications: No immediate complications. Procedure: Pre-Anesthesia Assessment: - The heart rate, respiratory rate, oxygen saturations, blood pressure, adequacy of pulmonary ventilation, and response to care were monitored throughout the procedure. The Colonoscope was introduced through the anus and advanced to the cecum, identified by appendiceal orifice and ileocecal valve. The colonoscopy was performed without difficulty. The patient tolerated the procedure well. The quality of the bowel preparation was excellent. Findings: The perianal and digital rectal examinations were normal. Non-bleeding internal hemorrhoids were found during retroflexion. The hemorrhoids were small and Grade I (internal hemorrhoids that do not prolapse). Multiple small and large-mouthed diverticula were found in the recto-sigmoid colon, sigmoid colon and descending colon. The exam was otherwise without abnormality on direct and retroflexion views. Impression: - Non-bleeding internal hemorrhoids. - Diverticulosis in the recto-sigmoid colon, in the sigmoid colon and in the descending colon. - The examination was otherwise normal on direct and retroflexion views. - No specimens collected. - The exam was otherwise normal to the cecum. Recommendation: - Patient has a contact number available for emergencies. The signs and symptoms of potential delayed complications were discussed with the patient. Return to normal activities tomorrow. Written discharge instructions were provided to the patient. - High fiber diet. - Discharge patient to home. - Continue present medications. - Repeat colonoscopy in 10 years for screening purposes. - Return to referring physician. - The findings and recommendations were discussed with the patient's family. Waqar Kerr MD Waqar Kerr MD 08/29/2016 7:59:49 AM This report has been signed electronically. Number of Addenda: 0 Note Initiated On: 08/29/2016 7:34 AM Estimated Blood Loss: Estimated blood loss: none.
[2016-08-29 08:20] VITALS: BP 138/71
== END | disposition home or self-care (01) ==
LOC: M OPP 06:26
PROVIDERS: ATTEND Internal Medicine Gastroenterology
DX: D50.0 Iron deficiency anemia secondary to blood loss (chronic) (principal); K64.0 First degree hemorrhoids; K57.30 Diverticulosis of large intestine without perforation or abscess without bleeding; R13.10 Dysphagia, unspecified; K44.9 Diaphragmatic hernia without obstruction or gangrene; I10 Essential (primary) hypertension; E03.9 Hypothyroidism, unspecified; R12 Heartburn; K58.9 Irritable bowel syndrome, unspecified; K57.92 Diverticulitis of intestine, part unspecified, without perforation or abscess without bleeding; F41.9 Anxiety disorder, unspecified; G43.909 Migraine, unspecified, not intractable, without status migrainosus; G47.30 Sleep apnea, unspecified; R06.83 Snoring; R06.02 Shortness of breath; R32 Unspecified urinary incontinence; Z79.899 Other long term (current) drug therapy

== ENCOUNTER → 2016-10-06 | Outpatient (CLI) | payer OTHER ==
[~2016-10-06] MED LIST changes: -COLA100C PO; +COLA100C3 PO; +E-Z-GAS II EFFERVESCENT PACKET (SODIUM BICARB./CITRIC ACID/SIMETHICONE) As Ordered ONE; +E-Z-HD 98% w/w 340GM SUSP BTL As Ordered ONE; +E-Z-PAQUE 96% w/w SUSP 176GM BTL As Ordered ONE; -LIDOCAINE 2% INJ 100 MG/5 ML SYRINGE As Ordered ONE; -NS 1,000 ML IV SCH; -PROPOFOL 500 MG/50 ML VIAL As Ordered ONE
--- NOTE | 2016-10-06 17:35 | REP ---
UPPER GI, AIR CONTRAST: The procedure was performed under the direct supervision of Dr. Ly. The images were reviewed with Dr. Ly. The head men's golf coach film shows no organomegaly or pathological masses. The intestinal gas pattern is nonspecific. There are surgical clips noted in the right upper quadrant. Liquid barium and gas-producing granules were given in the erect position as well as liquid barium in the prone oblique position in order to perform a double-contrast upper GI examination. The oral and pharyngeal stage of deglutition are unremarkable. Esophageal transport is prompt and efficient and there is no esophagitis, stricture or mucosal ring. There is a large fixed hiatal hernia present. Gastroesophageal reflux is not demonstrated on this examination. The stomach [place] are normally outlined. The rugal folds are smooth and regular. There is no gastritis, neoplasm, or ulcer disease. The duodenal [place] are normally outlined. The mucosal folds are smooth and regular. There is no duodenitis, pancreatitis, peptic ulcer disease, or neoplasm. The visualized portion of the proximal small bowel appears normal in course and caliber. IMPRESSION: There is a large fixed hiatal hernia present. Otherwise unremarkable double contrast upper GI examination. 1 minute and 55 seconds of fluoroscopic time was utilized for this procedure. Reviewed by ELLYN Curran 10/06/2016 05:44 PEdited and Signed by Colin Ly MD 10/09/2016 05:37 P
== END ==
LOC: M RAD 08:37
PROVIDERS: ATTEND Internal Medicine Gastroenterology
DX: R13.10 Dysphagia, unspecified (principal); D50.9 Iron deficiency anemia, unspecified; K44.9 Diaphragmatic hernia without obstruction or gangrene

== ENCOUNTER → 2016-11-27 | Outpatient (CLI) | payer OTHER ==
[~2016-11-27] MED LIST changes: -E-Z-GAS II EFFERVESCENT PACKET (SODIUM BICARB./CITRIC ACID/SIMETHICONE) As Ordered ONE; -E-Z-HD 98% w/w 340GM SUSP BTL As Ordered ONE; -E-Z-PAQUE 96% w/w SUSP 176GM BTL As Ordered ONE
== END ==
LOC: M SLEEP 19:53
PROVIDERS: ATTEND Nurse Practitioner Adult Health
DX: G47.61 Periodic limb movement disorder (principal)

== ENCOUNTER → 2016-11-30 | Outpatient (REF) | payer OTHER ==
[2016-11-30 18:24] LABS: BASO % 0.5 % (0.0-1.0); EOS # 0.1 K/mm3 (0.0-0.50); EOS % 1.8 % (0.0-3.0); LYMPH % 33.8 % (24.0-44.0); MEAN CORPUSCULAR HEMOGLOBIN 26.3 pg (27.0-33.0); MEAN CORPUSCULAR HGB CONC 32.3 g/dl (32.0-36.5); MEAN CORPUSCULAR VOLUME 81.4 fl (80.0-96.0); MONO # 0.5 K/mm3 (0.0-0.8); MONO % 8.3 % (0.0-5.0); NEUTROPHILS # 3.1 K/mm3 (1.8-7.7); NEUTROPHILS % 54.1 % (36.0-66.0); RED CELL DISTRIBUTION WIDTH 13.9 % (11.5-14.5); WHITE BLOOD COUNT 5.7 K/mm3 (4.0-10.0)
== END ==
LOC: M LAB REF 16:51
PROVIDERS: ATTEND Internal Medicine Gastroenterology
DX: D50.9 Iron deficiency anemia, unspecified (principal)

== ENCOUNTER → 2016-12-27 | Outpatient (CLI) | payer OTHER ==
[~2016-12-27] MED LIST changes: -COLA100C3 PO; +COLA100C5 PO; +FERR1TAB8 PO; -FERR325T PO; -ONDA1TAB16 PO; +ONDA8TAB7 PO; -VITA-130 PO; +VITA1CAP40 PO; -VITA50003 PO; +VITA500T PO
[2016-12-27 09:47] LABS: BLOOD UREA NITROGEN 17 MG/DL (7-18); GLOMERULAR FILTRATION RATE > 60.0 (>58)
--- NOTE | 2016-12-27 10:43 | REP ---
MR BRAIN WITHOUT AND WITH CONTRAST: HISTORY: Migraine headaches. CONTRAST: ProHance 16.2 mL. COMPARISON: CT 08/17/2016 Several punctate areas of increased signal intensity on T2-weighed images are present in the subcortical white matter of the frontal lobes. There is no intraparenchymal hemorrhage, infarct, mass or midline shift. The sella turcica is partially empty. A 6 mm pineal cyst is present. There is no abnormal enhancement. The ventricular system is normal in appearance. There is no extracerebral collection. The sinuses are clear. IMPRESSION: There are severe punctate areas of increased signal intensity in the subcortical white matter of the frontal lobes. This is a nonspecific finding, however , can be seen in conditions such as migraine. Signed by Tim Naranjo MD 12/27/2016 10:44 A
== END ==
LOC: M RAD 09:19
PROVIDERS: ATTEND Ophthalmology
DX: G43.809 Other migraine, not intractable, without status migrainosus (principal)

== ENCOUNTER → 2017-01-10 | Outpatient (REF) | payer OTHER ==
[2017-01-10 13:42] LABS: BASO % 0.8 % (0.0-1.0); EOS # 0.1 K/mm3 (0.0-0.50); EOS % 1.5 % (0.0-3.0); LARGE UNSTAINED CELL # 0.1 K/mm3 (0.0-0.4); LARGE UNSTAINED CELL % 1.8 % (0.0-4.0); LYMPH # 1.3 K/mm3 (1.5-4.5); LYMPH % 24.3 % (24.0-44.0); MEAN CORPUSCULAR HEMOGLOBIN 25.9 pg (27.0-33.0); MEAN CORPUSCULAR VOLUME 80.8 fl (80.0-96.0); MONO # 0.4 K/mm3 (0.0-0.8); MONO % 7.8 % (0.0-5.0); NEUTROPHILS # 3.2 K/mm3 (1.8-7.7); NEUTROPHILS % 63.8 % (36.0-66.0); PLATELET COUNT, AUTOMATED 372 k/mm3 (150-450); RED CELL DISTRIBUTION WIDTH 14.8 % (11.5-14.5)
[2017-01-10 14:07] LABS: ALBUMIN 3.7 GM/DL (3.2-5.2); ALBUMIN/GLOBULIN RATIO 0.95 (1.00-1.93); ALKALINE PHOSPHATASE 76 U/L (45-117); ALT/SGPT 18 U/L (12-78); ANION GAP 10 MEQ/L (8-16); AST/SGOT 15 U/L (15-37); BILIRUBIN,TOTAL 0.4 MG/DL (0.2-1.0); BLOOD UREA NITROGEN 10 MG/DL (7-18); CALCIUM LEVEL 8.9 MG/DL (8.5-10.1); CARBON DIOXIDE LEVEL 23 MEQ/L (21-32); CHLORIDE LEVEL 105 MEQ/L (98-107); CREATININE FOR GFR 0.71 MG/DL (0.55-1.02); GLOMERULAR FILTRATION RATE > 60.0 (>58); GLUCOSE, FASTING 89 MG/DL (70-105); POTASSIUM SERUM 3.7 MEQ/L (3.5-5.1); SODIUM LEVEL 138 MEQ/L (136-145); TOTAL PROTEIN 7.6 GM/DL (6.4-8.2)
[2017-01-10 14:48] LABS: ERYTHROCYTE SEDIMENTATION RATE 33 mm/hr (0-20)
== END ==
LOC: M LABNEURO 10:01
PROVIDERS: ATTEND Psychiatry & Neurology Neurology
DX: R51 Headache (principal)

== ENCOUNTER → 2017-02-22 | Outpatient (REF) | payer OTHER ==
[2017-02-22 19:38] LABS: BASO % 0.3 % (0.0-1.0); EOS % 0.5 % (0.0-3.0); LARGE UNSTAINED CELL # 0.1 K/mm3 (0.0-0.4); LARGE UNSTAINED CELL % 1.4 % (0.0-4.0); LYMPH # 1.6 K/mm3 (1.5-4.5); LYMPH % 16.5 % (24.0-44.0); MEAN CORPUSCULAR HEMOGLOBIN 28.3 pg (27.0-33.0); MEAN CORPUSCULAR HGB CONC 32.8 g/dl (32.0-36.5); MEAN CORPUSCULAR VOLUME 86.3 fl (80.0-96.0); MONO # 0.5 K/mm3 (0.0-0.8); MONO % 4.8 % (0.0-5.0); NEUTROPHILS # 7.5 K/mm3 (1.8-7.7); NEUTROPHILS % 76.4 % (36.0-66.0); PLATELET COUNT, AUTOMATED 345 k/mm3 (150-450); RED CELL DISTRIBUTION WIDTH 17.9 % (11.5-14.5); WHITE BLOOD COUNT 9.8 K/mm3 (4.0-10.0)
[2017-02-22 20:20] LABS: ERYTHROCYTE SEDIMENTATION RATE 29 mm/hr (0-20)
[2017-02-22 20:29] LABS: ALBUMIN/GLOBULIN RATIO 1.05 (1.00-1.93); ALKALINE PHOSPHATASE 82 U/L (45-117); ALT/SGPT 16 U/L (12-78); ANION GAP 9 MEQ/L (8-16); AST/SGOT 8 U/L (15-37); BILIRUBIN,TOTAL 0.5 MG/DL (0.2-1.0); BLOOD UREA NITROGEN 14 MG/DL (7-18); CALCIUM LEVEL 9.3 MG/DL (8.5-10.1); CARBON DIOXIDE LEVEL 23 MEQ/L (21-32); CHLORIDE LEVEL 105 MEQ/L (98-107); CREATININE FOR GFR 0.72 MG/DL (0.55-1.02); GLOMERULAR FILTRATION RATE > 60.0 (>58); GLUCOSE, FASTING 80 MG/DL (70-105); SODIUM LEVEL 137 MEQ/L (136-145); TOTAL PROTEIN 7.8 GM/DL (6.4-8.2)
[2017-02-26 00:09] LABS: Lyme Disease IgG/IgM Antibodie <0.91 ISR (0.00-0.90); Lyme Disease IgM Ab Quantitati <0.80 index (0.00-0.79)
== END ==
LOC: M LABDRAW1 17:35
PROVIDERS: ATTEND Internal Medicine Rheumatology
DX: M35.9 Systemic involvement of connective tissue, unspecified (principal); Z79.899 Other long term (current) drug therapy; Z72.9 Problem related to lifestyle, unspecified; R53.83 Other fatigue

== ENCOUNTER → 2017-03-13 | Outpatient (REF) | payer OTHER ==
[2017-03-13 13:39] LABS: ALBUMIN 3.9 GM/DL (3.2-5.2); ALBUMIN/GLOBULIN RATIO 0.98 (1.00-1.93); ALKALINE PHOSPHATASE 92 U/L (45-117); ALT/SGPT 18 U/L (12-78); AST/SGOT 5 U/L (15-37); BILIRUBIN,DIRECT < 0.1 MG/DL (0.0-0.2); BILIRUBIN,TOTAL 0.4 MG/DL (0.2-1.0); CHOLESTEROL LEVEL 178 MG/DL (<200); FREE T4 1.08 NG/DL (0.76-1.46); TOTAL PROTEIN 7.9 GM/DL (6.4-8.2); TRIGLYCERIDES LEVEL 86 MG/DL (<150)
== END ==
LOC: M LABDRAW1 11:16
PROVIDERS: ATTEND Internal Medicine Cardiovascular Disease
DX: E03.9 Hypothyroidism, unspecified (principal)

== ENCOUNTER → 2017-07-25 | Outpatient (REF) | payer OTHER ==
[2017-07-25 15:57] LABS: BASO # 0.1 10^3/uL (0.0-0.2); BASO % 0.9 % (0.0-1.0); EOS # 0.1 10^3/uL (0.0-0.50); EOS % 1.1 % (0.0-3.0); HEMATOCRIT 41.5 % (36.0-47.0); HEMOGLOBIN 13.5 g/dl (12.0-16.0); IMMATURE GRANULOCYTE % 0.3 % (0-3.0); LYMPH # 1.9 10^3/uL (1.5-4.5); LYMPH % 27.5 % (24.0-44.0); MEAN CORPUSCULAR HEMOGLOBIN 30.2 pg (27.0-33.0); MEAN CORPUSCULAR HGB CONC 32.5 g/dl (32.0-36.5); MEAN CORPUSCULAR VOLUME 92.8 fl (80.0-96.0); MONO # 0.6 10^3/uL (0.0-0.8); MONO % 8.5 % (0.0-5.0); NEUTROPHILS # 4.3 10^3/uL (1.8-7.7); NEUTROPHILS % 61.7 % (36.0-66.0); PLATELET COUNT, AUTOMATED 341 10^3/uL (150-450); RED BLOOD COUNT 4.47 10^6/uL (4.00-5.40); RED CELL DISTRIBUTION WIDTH 12.8 % (11.5-14.5)
[2017-07-25 16:10] LABS: ALBUMIN 3.8 GM/DL (3.2-5.2); ALBUMIN/GLOBULIN RATIO 1.03 (1.00-1.93); ALKALINE PHOSPHATASE 86 U/L (45-117); ALT/SGPT 15 U/L (12-78); ANION GAP 8 MEQ/L (8-16); AST/SGOT 11 U/L (7-37); BILIRUBIN,TOTAL 0.6 MG/DL (0.2-1.0); BLOOD UREA NITROGEN 12 MG/DL (7-18); C REACTIVE PROTEIN QUANTITATIV 0.41 MG/DL (0.00-0.30); CALCIUM LEVEL 9.3 MG/DL (8.5-10.1); CARBON DIOXIDE LEVEL 25 MEQ/L (21-32); CHLORIDE LEVEL 107 MEQ/L (98-107); CREATININE FOR GFR 0.86 MG/DL (0.55-1.30); GLOMERULAR FILTRATION RATE > 60.0 (>58); GLUCOSE, FASTING 78 MG/DL (70-100); POTASSIUM SERUM 4.4 MEQ/L (3.5-5.1); SODIUM LEVEL 140 MEQ/L (136-145); TOTAL PROTEIN 7.5 GM/DL (6.4-8.2)
[2017-07-25 20:18] LABS: ERYTHROCYTE SEDIMENTATION RATE 10 mm/hr (0-20)
== END ==
LOC: M LABDRAW1 13:08
DX: M45.0 Ankylosing spondylitis of multiple sites in spine (principal); Z79.899 Other long term (current) drug therapy
CPT/HCPCS: 80053

== ENCOUNTER 2022-07-22 13:20 | Emergency (ER) | payer OTHER ==
[~2022-07-22] VITALS: Ht 154.9 cm; Wt 81.8 kg
[~2022-07-22 13:20] MED LIST changes: +FLUO-96 PO; -FLUO20CA8 PO; +HYDR-3490 PO; -HYDR25TAB PO; +LOSA25TA13 PO; -LOSA25TA8 PO; +NECO1TAB2 PO; -NECO1TAB9 PO; -OMEP40CA2 PO; +OMEP40CA4 PO; +ONDA-84 PO; -ONDA8TAB7 PO; +SUCR1ORA PO; -SUCR1SUS PO; +VITA-243 PO; -VITA1CAP40 PO; +VITA50005 PO; -VITA500T PO
[2022-07-22] MEDS ORDERED: ISOVUE-370 76% 100ML VIAL As Ordered ONE (14:06)
[2022-07-22 14:16] LABS: BASO # 0.1 10^3/uL (0.0-0.2); BASO % 0.5 % (0.0-1.0); EOS # 0.2 10^3/uL (0.0-0.5); EOS % 1.6 % (0.0-3.0); HEMATOCRIT 42.9 % (36.0-47.0); HEMOGLOBIN 13.7 g/dl (12.0-15.5); LYMPH # 2.2 10^3/uL (1.5-5.0); LYMPH % 22.3 % (24.0-44.0); MEAN CORPUSCULAR HEMOGLOBIN 29.5 pg (27.0-33.0); MEAN CORPUSCULAR HGB CONC 31.9 g/dl (32.0-36.5); MEAN CORPUSCULAR VOLUME 92.5 fl (80.0-96.0); MONO # 0.7 10^3/uL (0.0-0.8); MONO % 7.4 % (2.0-8.0); NEUTROPHILS # 6.7 10^3/uL (1.5-8.5); NEUTROPHILS % 67.7 % (36.0-66.0); PLATELET COUNT, AUTOMATED 270 10^3/uL (150-450); RED BLOOD COUNT 4.64 10^6/uL (4.00-5.40); WHITE BLOOD COUNT 9.8 10^3/uL (4.0-10.0)
[2022-07-22 14:32] LABS: APPEARANCE, URINE MANUAL CLEAR (CLEAR); COLOR, URINE MANUAL YELLOW (YELLOW); PROTEIN, URINE MANUAL NEGATIVE (NEGATIVE)
[2022-07-22 14:33] LABS: BILIRUBIN, URINE MANUAL NEGATIVE (NEGATIVE); BLOOD URINE MANUAL POSITIVE (NEGATIVE); GLUCOSE, URINE (UA) MANUAL NEGATIVE (NEGATIVE); KETONE, URINE MANUAL NEGATIVE (NEGATIVE); LEUKOCYTE ESTERASE, URINE MAN NEGATIVE (NEGATIVE); NITRITE, URINE MANUAL NEGATIVE (NEGATIVE); UROBILINOGEN, URINE MANUAL NORMAL (NORMAL)
[2022-07-22 14:43] LABS: SQUAMOUS EPITHELIAL CELL URINE MOD AMOUNT /hpf (SMALL AMT)
[2022-07-22 14:43] LABS: LIPASE 31 U/L (12-53)
[2022-07-22 14:44] LABS: BACTERIA, URINE NONE SEEN; HYALINE CAST, URINE NONE SEEN /lpf (0-1); MUCUS, URINE MOD AMOUNT (NEGATIVE)
[2022-07-22 14:44] LABS: CK-MB VALUE MASS 2.8 NG/ML (<3.6)
[2022-07-22 14:45] LABS: ALBUMIN 3.8 G/DL (3.2-5.2); ALKALINE PHOSPHATASE 95 U/L (46-116); ALT/SGPT 17 U/L (7.0-40); AMYLASE 54 U/L (30-118); AST/SGOT 10 U/L (<34); BILIRUBIN,DIRECT 0.1 MG/DL (<0.4); BILIRUBIN,TOTAL 0.5 MG/DL (0.3-1.2); TOTAL PROTEIN 7.4 G/DL (5.7-8.2)
[2022-07-22 14:48] LABS: CPK CREATINE PHOSPHOKINASE 136 U/L (34-145); MB/CK RELATIVE INDEX 2.05 (< OR =4)
[2022-07-22] MEDS ORDERED: KETOROLAC 30 MG/ML 1ML VIAL IM ONE (16:40)
[2022-07-22] MEDS ORDERED: KETO10TAB PO (16:54)
[2022-07-22] MEDS ORDERED: NORCO 5/325MG TABLET (HOME DOSE PACK) PO ONE (16:55)
[2022-07-22 17:20] VITALS: BP 166/81
== END 2022-07-22 17:28 | disposition home or self-care (01) ==
LOC: EDBD 13:20 → M ED 13:20
DX: S90.02XA Contusion of left ankle, initial encounter (principal); S80.02XA Contusion of left knee, initial encounter; V43.62XA Car passenger injured in collision with other type car in traffic accident, initial encounter; I10 Essential (primary) hypertension; E03.9 Hypothyroidism, unspecified; K58.9 Irritable bowel syndrome, unspecified; Z79.890 Hormone replacement therapy; Z79.899 Other long term (current) drug therapy; Z91.030 Bee allergy status
CPT/HCPCS: 36415; 70450; 71250; 72125; 73564; 73610; 74176; 80047; 80076; 81000; 82150; 82550; 82553; 83605; 83690; 84484; 85025; 93041; 94760; 96372; 99285; J1885

== ENCOUNTER → 2022-12-08 | Outpatient (CLI) | payer OTHER ==
[~2022-12-08] MED LIST changes: +KETO10TAB PO
== END ==
LOC: M PLAIMG 10:53
PROVIDERS: ATTEND Orthopaedic Surgery
DX: M54.2 Cervicalgia (principal)

== ENCOUNTER → 2024-09-11 | Outpatient (CLI) | payer OTHER | LOC: M PLARAD 09:12 | PROVIDERS: ATTEND Student in an Organized Health Care Education/Training Program | DX: G24.3 Spasmodic torticollis (principal); M48.02 Spinal stenosis, cervical region; M47.812 Spondylosis without myelopathy or radiculopathy, cervical region ==